=== PATIENT | male | born 1945 | race Caucasian/White ===

== ENCOUNTER 2019-04-10 06:50 | Day surgery (SDC) | payer MEDICARE ==
--- NOTE | 2019-03-28 12:31 | NUR ---
PATIENT HERE TODAY FOR PREADMISSION APPOINTMENT. HE IS SCHEDULED TO HAVE A RIGHT TOTAL KNEE ARTHROPLASTY ON 04/10/19. HIS WILL BE HERE TO TRANSPORT HIM HOME WHEN HE IS DISCHARGED. THEY DO NOT HAVE STEPS INTO THE HOME AND THERE ARE NO STEPS INSIDE THE HOME. HE HAS A WALK IN SHOWER WITH BUILT IN SHOWER BENCH. HE HAS A FRONT WHEELED WALKER AND HAS BEEN ASKED TO BRING THIS WITH HIM ON DAY OF SURGERY. PATIENT VERBALIZED UNDERSTANDING. PATIENT AND HIS LIVE IN [place] AND WOULD LIKE PHYSICAL THERAPY SET UP AND [facility] AFTER SURGERY. HE HAS BEEN IN CONTACT WITH THE PHYSICAL THERAPIST THERE. THIS INFORMATION WILL BE SENT TO DR WARD OFFICE AND CASE MANAGEMENT FOR FURTHER FOLLOW UP.
[~2019-04-10] VITALS: Ht 172.7 cm; Wt 73.5 kg
[~2019-04-10 06:50] MED LIST: ACETAMINOPHEN325 M1 PO; ASPIR-LOW81 MG PO; LISINOPRIL-HCT1 EACH PO; MELOXICAM15 MG PO; MULTIPLE VITAM1 EAC1 PO; OMEPRAZOLE20 MG PO; PRAVASTATIN SOD80 MG PO
--- NOTE | 2019-04-10 10:51 | NUR ---
04/10/19 1051 Sheets,Judy 1041 PT ARRIVED TO PACU AWAKE AND TALKING TO RN. RESP EVEN AND UNLABORED AND PT DENIES PAIN AND NAUSEA. ON-Q IN PLACE SET AT [address] FLASHING GREEN LIGHT. CYRO CUFF PLACED ON RIGHT KNEE. PT ABLETO MOVE LEGS SLIGHTLY NO MOVEMENT OR FEELING IN FEET. VSS. SPINAL LEVEL L1.
--- NOTE | 2019-04-10 11:15 | NUR ---
PT ARRIVED TO [facility] FLO[facility] ROOM 116 AT THIS TIME. PT IS ALERT AND ORIENTED, DENIES SOB, PAIN OR NAUSEA. SCD'S IN PLACE, PT PROVIDED WITH I.S. AND INSTRUCTED ON ITS USE AND IS CONSISTANTLY ACHEIVING 1500 TO 1700 MLS OF VOLUME ON I.S. ASSESSMENT COMPLETED AND PT PROVIDED WITH JELLO PE RREQEUST. PT TOLERATED JELLO WELL SO LUNCH ORDERED PER PT REQUEST. CALL LIGHT AND H2O IN REACH. VSS ON RA. NO NEEDS OR CONCERNS VOICED.
--- NOTE | 2019-04-10 12:35 | NUR ---
PT RESTING IN SEMIFOWLERS POSITION IN BED ALERT AND ORIENTED. REPORTS TOLERATING ALL OF HIS CHEESEBURGER AND FRIES THAT HE ATE FOR LUNCH WELL. VSS. PT REPORTS FEELING IS RETURNING TO RIGHT TOES AND HE IS NOW ABLE TO WIGGLE TOES, CAP REFILL 1 SECOND AND PULSES +2 TO LEFT FOOT. CALL LIGHT AND H2O IN REACH. PT WATCHING TV AND DENIES PAIN OR NEEDS/CONCERNS. VFP IN PLACE, HEAL PROTECTORS ON AND PT REPORTS THAT HE IS USING I.S..
--- NOTE | 2019-04-10 14:42 | NUR ---
PT RESTING SUPINE IN BED PT STATES "I THINK I HAD AN ACCIDANT" PT INCONTINANT OF URINE SO ASSISTED UP TO BSC WITH 2PA AND FWW. PT VERY UNSTEADY ON FEET AT THIS TIME SO WAS ENCOURAGED TO TRANSFER SLOWLY AND SEEMED TO DO BETTER. LINENES CHANGED AND NEW GOWN PROVIDED. PT ASSISTED BACK TO BED. VFP REAPPLIED WELL CRYOCUFF. SCHEDULED MED ADMNISTERED AND VSS. CALL LIGHT AND FRESH ICE WATER PROVIDED. PT DENIES FURTHER NEEDS OR CONCERNS.
--- NOTE | 2019-04-10 15:08 | NUR ---
PT CALL LIGHT ON. PUMP ALARMING, INFUSION COMPLETE. PIV SALINE LOCKED. ALCOHOL CAPS APPLIED. DINNENR AND BREAKFAST ORDER PLACED FOR PT. O2 AT 93% ON ROOM AIR HR = 85. NO ADDITIONAL REQUESTS OR COMPLAINTS AT THIS TIME. CALL LIGHT WITHIN REACH.
--- NOTE | 2019-04-10 16:19 | NUR ---
Medications reconciled using pharmacy records and patient interview
--- NOTE | 2019-04-10 17:07 | NUR ---
PT RESTING IN SEMIFOWLERS POSITION IN BED, ASSESSMENT COMPLETED. CALL LIGHT AND H2O IN REACH. PT DENIES PAIN, NAUSEA OR SOB. SCHEDULED MEDS ADMINISTERED. NO NEEDS OR CONCERNS VOICED.
--- NOTE | 2019-04-10 19:05 | NUR ---
PT RESTING IN BED, WATCHING TV. PT DENIES PAIN. DEMETRI BLINKING GREEN, ONQ @2, CRYO CUFF, FRANCES HOSE, JUAREZ WRAP, SCDs ON. DEMETRI CDI. CPOX 94%, RA. NO OTHER NEEDS. CALL LIGHT IN REACH.
--- NOTE | 2019-04-10 22:10 | NUR ---
pt AWAKE, RESTING IN BED. DENIES PAIN. STATES "I CAN FEEL IT IN MY LEG, AND KNEE. IT'S DULL." ICE REFILLED IN CRYO CUFF. ICE WATER PROVIDED. ATTENDS DRY. DENIES TOILETING NEEDS. CALL LIGHT IN REACH.
--- NOTE | 2019-04-10 22:52 | NUR ---
ASSESMENT COMPLETED. SCHEDULED MEDS PROVIDED. PT DENIES PAIN. RLE CMS INTACT. CPOX 93% RA. IV MEDS INFUSING PER ORDER. NO OTHER NEEDS. CALL LIGHT IN REACH.
--- NOTE | 2019-04-11 00:04 | NUR ---
PT WAKES TO VOICE. SCHEDULED MED PROVIDED. PT DENIES PAIN. DEMETRI BLINKING ORANGE, ONQ @2, CRYO CUFF, FRANCES HOSE, SCDs AND HEEL PROTECTORS ON. NO OTHER NEEDS AT THIS TIME. CALL LIGHT.
--- NOTE | 2019-04-11 01:46 | NUR ---
PT RESTING IN BED, EYES CLOSED. RR 18, EVEN, UNLABORED. CALL LIGHT IN REACH.
--- NOTE | 2019-04-11 02:55 | NUR ---
PT WAKES TO VOICE. VS AND I&O TAKEN. SCHEDULED MED PROVIDED. PT DENIES PAIN. ASSESSMENT COMPLETED. REDNESS NOTED TO INSIDE OF RIGHT KNEE, 2" X 2". DEMETRI BLINKING ORANGE, DRY. CRYO CUFF, FRANCES HOSE, HEEL PROTECTORS AND SCDs IN PLACE. PT TOLERATING THEM WELL. NO OTHER NEEDS AT THIS TIME. CALL LIGHT IN REACH.
--- NOTE | 2019-04-11 04:52 | NUR ---
PT RESTING IN BED, EYES CLOSED. RR 16, EVEN, UNLABORED. CALL LIGHT IN REACH.
--- NOTE | 2019-04-11 05:47 | NUR ---
PT HAS SLEPT WELL THIS SHIFT. DEMETRI BLINKING ORANGE, UNABLE TO SEAL BANDAGE WITH TAPE. ONQ @2. JUAREZ BANDAGE, CRYO CUFF, FRANCES HOSE, SCDs AND HEEL PROTECTORS TOLERATED WELL. PAIN MANAGED WITH SCHEDULED MEDS. REDNESS TO INNER RIGHT KNEE NOTED. NO EDEMA NOTED TO SURGICAL AREA.
--- NOTE | 2019-04-11 06:13 | NUR ---
PT RESTING IN BED, WATCHING TV. SCHEDULED MEDS PROVIDED. PT DENIES PAIN. DEMETRI BLINKING GREEN, CDI. ONQ @2. NO OTHER NEEDS AT THIS TIME. CALL LIGHT IN REACH.
--- NOTE | 2019-04-11 06:36 | NUR ---
PT VS AND I & O COMPLETE. PT DENIES PAIN. DEMETRI BLINKING GREEN, CDI. ONQ @2. CRYO CUFF ICE CHANGED. NO OTHER NEEDS. CALL LIGHT IN REACH.NO OTHER NEEDS
--- NOTE | 2019-04-11 07:39 | OR ---
[facility] [address] [facility] [place], [place] [address] Signed DATE OF OPERATION: 04/10/2019 SURGEON: Rafael Napoles MD PREOPERATIVE DIAGNOSIS: Severe degenerative joint disease, right knee. POSTOPERATIVE DIAGNOSIS: Severe degenerative joint disease, right knee. PROCEDURES PERFORMED: 1. Right total knee arthroplasty with computer navigation. 2. Implantation of adductor canal block, percutaneous. PIG MACHINE OPERATOR: Dipika Luciano PA-C. ANESTHESIA: Spinal. Dipika was present and critical for all portions of procedure. ESTIMATED BLOOD LOSS: 275 mL. TOURNIQUET TIME: Zero. IMPLANTS: Size 4 Triathlon 11 mm insert and 32 mm patella. BRIEF HISTORY: Farhat is a 74-year-old gentleman with progressive worsening of osteoarthritis. Nonoperative treatment had failed to control his symptoms. Risks and benefits of operative treatment were discussed with him and he elected to proceed. DESCRIPTION OF PROCEDURE: Once consent was obtained, he was taken to the operating room. After adequate anesthesia, he was placed on operating table and all downside pressure points were well padded. Right leg was prepped and draped in a standard sterile fashion. Standard Electronically Signed By: RAFAEL NAPOLES MD 04/11/19 0739 PATIENT NAME: FARHAT DEE JR OPERATIVE REPORT DATE OF : 43 REPORT #: [id number] PHYSICIAN: RAFAEL NAPOLES MD PCP: TERESA GUAN MD REPORT IS CONFIDENTIAL AND NOT TO BE RELEASED WITHOUT AUTHORIZATION [facility] [address] [place], [place] [address] Signed anterior approach through a straight incision was taken through skin and subcutaneous tissue. Median parapatellar arthrotomy was performed. The infrapatellar fat pad was excised and the MCL was elevated with a sleeve subperiosteally around the posterior medial corner. The knee was flexed. Anterior horns of menisci were transected as was the ACL. PCL was found to be intact. Navigation guide was then pinned to the distal femur and the femur was registered with the computer. The distal femoral cutting block was then pinned in neutral alignment and the distal femoral cut was made. The distal femur a sized to a 4. The 4 AP cutting block was then pinned in line with epicondylar axis, and the anterior, posterior, and chamfer cuts were made. All osteophytes were removed. Multiple loose bodies were found actually in the suprapatellar pouch, at least 4 were removed. The bleeders were cauterized as we went using the Aquamantys. The attention was then turned to the proximal tibia and the menisci were removed to allow better visualization. The navigation guide was pinned to the top of the tibia and the tibia was registered with the computer. The cutting block was then pinned in anatomic alignment and the cut was made with care taken to protect the MCL, PCL, and patellar tendon. The bone was removed as were any meniscal remnants. Posterior osteophytes were removed off the back of the femur and posterior release performed. Flexion-extension gaps were sized and found to be symmetric at 11 mm. The trials were then positioned. Knee was taken through range of motion and found to be quite stable. The patella was then cut, sized, and drilled for a 32 patella. The proximal femur was drilled for the post, and the distal tibia was drilled for the post and proximal tibia was finished using the keel punch followed by the small drill. The implants were selected. The uncemented implants were then implanted. The tibia was impacted in position first followed by the polyethylene. The poly. The femur was then impacted into position and the knee was extended and nicely loaded. The patella was clamped into position. Knee was taken through range of motion and found to be quite stable. The patella tracked well. The periarticular soft tissues were injected with 100 mL ropivacaine and Toradol mixture. The On-Q pain pump was then placed in the adductor canal from the suprapatellar pouch. This was done percutaneously. The knee was then copiously irrigated with dilute iodine solution followed by normal saline and the arthrotomy was closed using #2 Stratafix, 0 Stratafix for the subcutaneous tissue, and christopher for the skin. Wound was dressed with a DEMETRI wound VAC dressing and ABD and Estuardo wrap. He tolerated the procedure well. All sponge, needle, and instrument counts were correct. Rafael Napoles MD BA/MODL /[id number] Electronically Signed By: RAFAEL NAPOLES MD 04/11/19 0739 PATIENT NAME: FARHAT DEE JR OPERATIVE REPORT DATE OF : 43 REPORT #: [id number] PHYSICIAN: RAFAEL NAPOLES MD PCP: TERESA GUAN MD REPORT IS CONFIDENTIAL AND NOT TO BE RELEASED WITHOUT AUTHORIZATION [address] [address] Signed Copies: ~ Electronically Signed By: RAFAEL NAPOLES MD 04/11/19 0739 PATIENT NAME: FARHAT DEE JR Marsha OPERATIVE REPORT DATE OF : 43 REPORT #: [id number] PHYSICIAN: RAFAEL NAPOLES MD PCP: TERESA GUAN MD REPORT IS CONFIDENTIAL AND NOT TO BE RELEASED WITHOUT AUTHORIZATION
[2019-04-11] MEDS ORDERED: OXYCODONE HCL5 MG PO (07:52)
[2019-04-11] MEDS ORDERED: CELECOXIB200 MG PO (07:52)
[2019-04-11] MEDS ORDERED: GABAPENTIN300 MG PO (07:52)
[2019-04-11] MEDS ORDERED: SENNA LAX8.6 MG PO (07:52)
[2019-04-11] MEDS ORDERED: TYLENOL EXTRA500 MG PO (07:52)
[2019-04-11] MEDS ORDERED: ASPIRIN EC325 MG PO (07:52)
[2019-04-11] MEDS ORDERED: POLYETHYLENE GL17 GM PO (07:53)
--- NOTE | 2019-04-11 09:25 | NUR ---
PT UP TO THE CHAIR FOR BKF THIS AM. THEN HE HAS BEEN UP WALKING IN [place] WITH PT AND THEN [facility] WITH OT THIS AM. PT IS HAVING GOOD PAIN CONTROL THIS AM. DR WARD INTO SEE PT THIS AM AND WAS GOING TO GET THINGS READY FOR DISCHARGE TODAY FOR PT. HE TURNED UP THE ON-QPUMP TO 4 FROM 2. THE DEMETRI DRESSING AT TIMES IS FLASHING ORANGE AND THEN GREEN. PER DR WARD IT IS OKAY. CMS IN HIS RIGHT KNEE IS WNL'S, NO SWELLING OR DRAINAGE NOTED.
--- NOTE | 2019-04-11 12:00 | NUR ---
Spoke with pt. He is ready to go as soon as discharged. States pain is much improved following surgery to his knee. Plans on OP PT in [place]. Denies needs for DME as he already has walker and build in shower bench.
--- NOTE | 2019-04-11 15:28 | NUR ---
PT DISCHARGE TO HOME, UNDERSTOOD ALL INSTRUCTIONS AND HIS WAS PRESENT ALSO.
--- NOTE | 2019-04-11 15:29 | NUR ---
PT HAS WORK WITH PHYSICAL THERAPY AND [facility] TO AMBULATE IN [place]. PT UNDERSTOOD HIS INSTRUCTIONS TO FOLLOW UP WITH DR WARD AND WORK WITH PHYSICAL THERYA AN OUTPATIENT. HIS ONQ-PUMP AND DEMETRI DRESSING REMAIN INTACK BUT AT TIMES WAS GREEN AND OTHER TIMES IT WAS YELLOW.
--- NOTE | 2019-04-11 16:10 | NUR ---
FAXED CLINICALS TO [facility] OUTPATIENT PHYSICAL THERAPY DEPARTMENT [phone]. FAX CONFIRMATION RECEIVED 04/11/19 420PM. CALLED AND LEFT MESSAGE REGARDING CLINCALS AND THAT ORDER SHOULD COME DIRECTLY FROM DR WARD OFFICE.
== END 2019-04-11 14:30 | disposition home or self-care (01) ==
LOC: DS 06:50 → MS 06:50 → DS 11:15
PROVIDERS: Specialist
PROC: 8E0YXBZ Computer Assisted Procedure of Lower Extremity (ICD-10-PCS; 2019-04-10)
PROC: 0SRC0JA Replacement of Right Knee Joint with Synthetic Substitute, Uncemented, Open Approach (ICD-10-PCS; principal; 2019-04-10 11:15)
DX: M17.0 Bilateral primary osteoarthritis of knee (principal); I10 Essential (primary) hypertension; Z79.82 Long term (current) use of aspirin; Z79.899 Other long term (current) drug therapy; Z79.1 Long term (current) use of non-steroidal anti-inflammatories (NSAID)
CPT/HCPCS: 01402; 64447; 76942; 97110; 97116; 97161; C1776; J0131; J0690; J1100; J1885; J2250; J2370; J2704; J2795; J7121; J8540